=== PATIENT | female | born 1980 | race Caucasian/White ===

== ENCOUNTER 2017-07-06 18:21 | Emergency (ER) | payer SELFPAY ==
[2017-07-06 18:35] VITALS: BP 163/104
== END 2017-07-06 19:02 | disposition home or self-care (01) ==
LOC: ED 18:21
DX: S16.1XXA Strain of muscle, fascia and tendon at neck level, initial encounter (principal); X58.XXXA Exposure to other specified factors, initial encounter; Y93.89 Activity, other specified; Y99.8 Other external cause status; Y92.89 Other specified places as the place of occurrence of the external cause

== ENCOUNTER 2018-09-08 17:57 | Emergency (ER) | payer SELFPAY ==
[~2018-09-08] VITALS: Ht 144.8 cm; Wt 95.3 kg
[2018-09-08 18:02] VITALS: Ht 144.8 cm; Wt 95.3 kg
[2018-09-08 19:44] LABS: BASOPHIL % 0.4 % (0-2); PLATELET COUNT 324 x10^3mcL (130-400)
[2018-09-08 19:47] LABS: RED CELL DISTRIBUTION WIDTH 16.5 % (11.5-14.5)
[2018-09-08 20:37] LABS: microscopic required? YES; urine erythrocyte NEGATIVE (NEGATIVE)
[2018-09-08 21:34] VITALS: BP 163/112
== END 2018-09-08 21:34 | disposition home or self-care (01) ==
LOC: ED 17:57
PROVIDERS: Emergency Medicine
DX: R19.00 Intra-abdominal and pelvic swelling, mass and lump, unspecified site (principal); R10.32 Left lower quadrant pain; R10.31 Right lower quadrant pain
CPT/HCPCS: 36415; 87491; 87591; J1885

== ENCOUNTER 2018-11-22 16:31 | Emergency (ER) | payer SELFPAY ==
[~2018-11-22] VITALS: Ht 147.3 cm; Wt 95.4 kg
[2018-11-22 16:51] VITALS: Ht 147.3 cm; Wt 95.4 kg
[2018-11-22 17:28] VITALS: BP 170/82
== END 2018-11-22 17:28 | disposition home or self-care (01) ==
LOC: ED 16:31
DX: B02.29 Other postherpetic nervous system involvement (principal)
CPT/HCPCS: J2250